=== PATIENT | female | born 1990 | race Caucasian/White ===

== ENCOUNTER 2023-12-22 13:55 | Emergency (ER) | payer BC, SELFPAY ==
[2023-12-22 13:59] VITALS: BP 132/79
[2023-12-22 15:05] VITALS: BP 122/80
[2023-12-22 15:38] LABS: Urine Albumin Negative (Neg - Trace); Urine Bilirubin Negative (Negative); Urine Character Clear (Clear); Urine Color Yellow; Urine Glucose Negative (Negative); Urine Ketone Negative (Negative); Urine Leukocyte Trace (Negative); Urine Nitrite Negative (Negative); Urine Occult Blood Negative (Negative); Urine Urobilinogen Negative (Neg - 1+)
[2023-12-22 15:39] LABS: % Basophils 0.3 % (0-2); % Eosinophils 0.4 % (0-6); % Immature Granulocytes 0.4 % (0-0.5); % Lymphocytes 15.6 % (20.5-51.1); % Monocytes 6.1 % (1.7-9.3); % Neutrophils 77.2 % (42.2-75.2); Absolute Lymphocytes 1.5 10^3/uL (1.2-3.4); Absolute Monocytes 0.6 10^3/uL (0.1-0.6); Absolute Neutrophils 7.6 10^3/uL (1.4-6.5); Hematocrit 38.4 % (37.0-47.0); Hemoglobin 13.6 g/dL (12.0-16.0); Mean Corp Hgb Conc. 35.4 g/dL (33.0-37.0); Mean Corpuscular Hgb 29.6 pg (27.0-31.0); Mean Corpuscular Volume 83.7 fL (81.0-99.0); Mean Platelet Volume 9.3 fL (7.4-10.4); Nucleated Red Blood Cells % 0 %; Platelet Count 166 10^3/uL (130-400); Red Blood Cell Count 4.59 10^6/uL (4.20-5.40); Red Cell Dist. Width 12.7 % (11.5-14.5); White Blood Cell Count 9.8 10^3/uL (4.8-10.8)
[2023-12-22 15:52] LABS: ALT (SGPT) 22 U/L (0-35); AST (SGOT) 28 U/L (14-36); Albumin 3.6 g/dl (3.5-5.0); Alkaline Phosphatase 152 U/L (38-126); Blood Urea Nitrogen 8 mg/dl (7-17); Calcium 8.8 mg/dl (8.4-10.2); Carbon Dioxide 24 mmol/L (22-30); Chloride 106 mmol/L (98-107); Glucose 77 mg/dl (70-99); Sodium 133 mmol/L (135-145); Total Bilirubin 1.3 mg/dl (0.2-1.3); Total Protein 6.6 g/dl (6.3-8.2); eGFR > 60.00
[2023-12-22 15:57] LABS: Urine Bacteria Few (Negative); Urine Red Blood Cell 0-2 /HPF (0-2); Urine Squamous Cell >30 /LPF (Few); Urine White Cell 0-2 /HPF (0-5)
--- NOTE | 2023-12-22 16:13 | ED.GENMED ---
History of Present Illness
<Héctor Jacobson DO - Last Filed: 12/22/23 16:17>
General
Chief Complaint: Chest Pain
Time Seen by Provider: 12/22/23 14:35
Travel History
Have you had any contact with someone who has COVID-19?: No
Do you have any symptoms of coronavirus? Fever > 100 degrees, chills, cough, shortness of breath, sore throat, loss of taste or smell, muscle aches, or headache?: No
<Cynthia Barnett PA-C - Last Filed: 12/23/23 17:43>
General
Source: patient
Exam Limitations: none
Nursing documentation reviewed up to this point in time: agreed with
History of Present Illness
History of Present Illness:
Patient is a 33-year-old female at 35 weeks gestation presenting for evaluation of left-sided chest pain with associated shortness of breath. Symptoms started earlier this week. Patient endorses left-sided chest pain with radiation to left
shoulder and shortness of breath that is worse when taking deep breaths and lying flat. Symptoms have been worsening over the past 2 days. She denies any fever, chills, lower leg pain, cough, or belly pain. She was recently treated for sinus
infection about a month ago.
She was seen at [facility] where her RECONDITIONER is. They performed a urinalysis to rule out preeclampsia and performed EKG. No findings at that time. She has also followed up in [facility]DITION[facility] office for repeat blood pressure measurements which have
been within normal range per patient.
This is her second �it has been uncomplicated thus far. No history of preeclampsia in the past
She has no personal history or family history of blood clots or any clotting disorders. She has had no recent travel or recent surgeries.
Past History
<Héctor Jacobson DO - Last Filed: 12/22/23 16:17>
Past History
ED Past Medical History: None
ED Past Surgical History: Other (Breast augmentation)
Social History
Tobacco: Non-smoker
Alcohol: None
Drug: None
Personal: Single
Living: with family
<Cynthia Barnett PA-C - Last Filed: 12/23/23 17:43>
Physical Exam
Physical Exam:
General: In mild distress due to discomfort and non-toxic, vital signs are�patient afebrile
HEENT: Atraumatic, normocephalic; pupils equal round reactive light bilaterally, protecting airway
Neck: appears supple, normal range of motion, no JVD
CV: Regular rate and rhythm, heart sounds normal, no evidence of cyanosis; no chest wall tenderness on palpation
Resp: No evidence of respiratory stress, lungs clear, no accessory muscle use
Abd: Soft, nontender, no CVA tenderness; fundus appropriate for gestational
Extremities: No deformities, no evidence of erythema, cyanosis or edema of bilateral lower extremities, pulses palpable and equal bilaterally; negative Homans' sign bilaterally
Neuro: alert and oriented x [address] time, speech normal, no focal neurologic deficits, no focal
Psych: Normal affect
Skin: Intact, no rashes
<Cynthia Barnett PA-C - Last Filed: 12/23/23 17:43>
Heart Score for Chest Pain Patients
STEMI patient?: Not applicable
Course
<Héctor Jacobson DO - Last Filed: 12/22/23 16:17>
Orders/Labs/Results
Orders:
Orders
12/22/23 13:56
ECG [Electrocardiogram (*1)] Urgent
Reason for Study: Chest Pain
EKG- Treatment ONCE
12/22/23 15:22
US Periph Venous LOWER Ext Teddy Urgent
Comment:
Reason For Exam: r/o dvt; chest pain, shortness of breath
12/22/23 15:28
Complete Blood Count/With Diff Urgent
Comprehensive Metabolic Panel Urgent
D-Dimer Urgent
Urinalysis Reflex To Culture Urgent
Date Specimen was Collected: 12/22/23
Time Specimen was Collected: 15:28
Urine Microscopic Reflex Cult Urgent
12/22/23 17:10
0.9% Sodium Chloride 1000 ml [Nss] 1,000 ml IV BOLUS
12/22/23 17:11
CT Chest Pe Study Urgent
Comment: 35 weeks
Reason For Exam: chest pain, shortness of breath, elevated d-dimer
Abnormal Lab Results
12/22/23
15:28
Absolute Neuts (auto) 7.6 H 10^3/uL
(1.4-6.5)
Neutrophils % 77.2 H %
(42.2-75.2)
Lymphocytes % 15.6 L %
(20.5-51.1)
D-Dimer 0.69 H ug/mlFEU
(0.00-0.50)
Sodium 133 L mmol/L
(135-145)
Creatinine 0.5 L mg/dL
(0.6-1.0)
Alkaline Phosphatase 152 H U/L
(38-126)
Leukocyte Esterase Rfl Trace A
(Negative)
Urine Bacteria (Reflex) Few A
(Negative)
12/22/23 15:28
12/22/23 15:28
Vital Signs
Initial and Last Documented VS:
Initial Vital Signs
Temp Pulse Resp BP Pulse Ox
98.3 F 89 18 132/79 100
12/22/23 13:59 12/22/23 13:59 12/22/23 13:59 12/22/23 13:59 12/22/23 13:59
Last Documented Vital Signs
Temp Pulse Resp BP Pulse Ox
98.3 F 73 15 140/75 100
12/22/23 13:59 12/22/23 18:30 12/22/23 18:30 12/22/23 18:17 12/22/23 18:30
<Cynthia Barnett PA-C - Last Filed: 12/23/23 17:43>
Orders/Labs/Results
Orders:
Orders
12/22/23 13:56
ECG [Electrocardiogram (*1)] Urgent
Reason for Study: Chest Pain
EKG- Treatment ONCE
12/22/23 15:22
US Periph Venous LOWER Ext Teddy Urgent
Comment:
Reason For Exam: r/o dvt; chest pain, shortness of breath
12/22/23 15:28
Complete Blood Count/With Diff Urgent
Comprehensive Metabolic Panel Urgent
D-Dimer Urgent
Urinalysis Reflex To Culture Urgent
Date Specimen was Collected: 12/22/23
Time Specimen was Collected: 15:28
Urine Microscopic Reflex Cult Urgent
12/22/23 17:10
0.9% Sodium Chloride 1000 ml [Nss] 1,000 ml IV BOLUS
12/22/23 17:11
CT Chest Pe Study Urgent
Comment: 35 weeks
Reason For Exam: chest pain, shortness of breath, elevated d-dimer
Abnormal Lab Results
12/22/23
15:28
Absolute Neuts (auto) 7.6 H 10^3/uL
(1.4-6.5)
Neutrophils % 77.2 H %
(42.2-75.2)
Lymphocytes % 15.6 L %
(20.5-51.1)
D-Dimer 0.69 H ug/mlFEU
(0.00-0.50)
Sodium 133 L mmol/L
(135-145)
Creatinine 0.5 L mg/dL
(0.6-1.0)
Alkaline Phosphatase 152 H U/L
(38-126)
Leukocyte Esterase Rfl Trace A
(Negative)
Urine Bacteria (Reflex) Few A
(Negative)
12/22/23 15:28
12/22/23 15:28
Vital Signs
Initial and Last Documented VS:
Initial Vital Signs
Temp Pulse Resp BP Pulse Ox
98.3 F 89 18 132/79 100
12/22/23 13:59 12/22/23 13:59 12/22/23 13:59 12/22/23 13:59 12/22/23 13:59
Last Documented Vital Signs
Temp Pulse Resp BP Pulse Ox
98.3 F 73 15 140/75 100
12/22/23 13:59 12/22/23 18:30 12/22/23 18:30 12/22/23 18:17 12/22/23 18:30
<Cynthia Barnett PA-C - Last Filed: 12/23/23 17:43>
MDM/Problems Addressed
Differential Diagnosis Includes:
Muscular strain, costochondritis, pleuritis, doubt PE, preeclampsia
MDM/Problems Addressed:
Patient is a 33-year-old female at 35 weeks gestation presenting for evaluation of left-sided chest pain associated shortness of breath worsening the past few days. Pain is sharp in nature and worse when taking deep breath and lying flat. No
associated fever, chills, cough, lower leg pain, belly pain. Recently seen in different emergency department earlier this week where urinalysis and EKG were unremarkable. She has had no recent travel or recent surgeries. Patient is
hemodynamically stable�afebrile. Heart rate is normal, oxygen saturation 100% on room air. Systolic blood pressure very mildly elevated. Physical exam as documented above. Lungs clear, heart sounds normal without any chest wall tenderness. No
evidence of DVT of lower extremity on exam. Given not tachycardic or hypoxic with no findings suggestive of DVT, doubt PE. Due to ongoing symptoms, will get basic labs. Will check D-dimer and chest for . Will get UA. Will get bilateral
ultrasound lower legs. Will reassess.
CBC without any clinically significant abnormalities. CMP without any clinically significant abnormalities. Urinalysis with no evidence of urinary tract infection, negative for protein. Ultrasound of lower legs negative for DVT in lower
extremities. D-dimer pending.
Update: D-dimer elevated to 0.69. Compared to adjusted reference range for . Given that patient is in third trimester, D-dimer remains elevated and out of range. Her vital signs remained stable in emergency department. Discussed options
with patient including risk for benefits of chest PE study. Given gestational age radiation risk to baby is very low. Patient would like to proceed with chest CT. Will start IV fluids. Chest CT pending.
CT of chest shows no evidence of pulmonary embolism or other abnormality in chest. Patient remains hemodynamically stable. No indication for admission at this time. She is stable for discharge with return precautions, RECONDITIONER/primary care
follow-up. Patient is comfortable this plan. All questions answered.
Chronic conditions affecting care:
<Cynthia Barnett PA-C - Last Filed: 12/23/23 17:43>
*Radiology
Radiology exam reviewed: radiology read reviewed
*Pulse Oximetry
Patient hypoxic: no
*EKG
Interpreted by ED Provider?: Yes
EKG Intrepretation Date: 12/22/23
Interpretation: normal
Comparison EKG: no comparison EKG present
Heart Rate: 75
Rate: normal
[place]: normal axis
Interval: normal interval
QRS Pattern: normal QRS
Ischemia: other (some T-wave inversion lead III, V3)
*Supervisor Fine Grading Interpretation
Rate: normal
Heart Rate: 80
Rhythm: sinus
*Critical Care Note
Total Time (30-74mins, 75-104mins- exclusive of procedures): Not Applicable
ED Attending Note
<Héctor Jacobson DO - Last Filed: 12/22/23 16:17>
ED Attending Note
Patient seen and examined by attending physician: Yes
I performed the substantive portion of visit, reviewed & personally made and approve the management plan that is documented in note by myself or GEORGE.: Yes
ED Attending Note:
Patient is a 33-year-old female who is 35 weeks and has an estimated date of confinement of January 21 who presents with left sharp chest pain for the past couple days. For about the last 3 to 4 days the patient's had chest tightness but is
now having sharp chest pains on the left that increased with movement or deep breathing. Patient denies fever or chills but was treated for sinus infection with antibiotics in the past. Patient denies abdominal pain. Patient denies leg pain or
swelling. Patient does feel short of breath and feels like she cannot take a deep breath. Patient denies coughing. There is no family history of clotting disorders. Patient was seen at another emergency department 2 days ago and had a urine and
EKG which were reportedly unremarkable. Physical exam patient has minimal to mild distress secondary to discomfort. Heart is regular lungs are clear. Chest is nontender. Abdomen shows fundus to be appropriate for dates. Lower extremities show
no edema or cyanosis. Distal pulses. Ultrasound is unremarkable. Will check a D-dimer and adjust for . I do not suspect the patient has a PE given Lack of tachycardia and 100% pulse ox. Patient's systolic blood pressure is mildly
elevated. Urine does not show any protein in the liver enzymes are not elevated. Anticipate treating the patient symptomatically and discharging. If the D-dimer is elevated beyond expected may have to do a CT of the chest. Given the patient is
35 weeks the risk of developmental impact for the fetus is minimal.
-
Portions of this chart may have been created with voice recognition software.� Occasional wrong word or��sound alike� substitutions may have occurred due to the inherent limitations of voice recognition software.
Discharge Plan
Departure
Patient Disposition: Home (Routine Discharge)
Date of Disposition: 12/22/23
Time of Disposition: 18:39
Patient with high blood pressure during this ER visit?: Yes
Condition: Good
Covid-19: Not Applicable
Discharge Problem:
Chest pain, unspecified, Dyspnea
Instructions: Chest Pain, Adult ED, BLOOD PRESSURE
Prescriptions:
No Action
diclofenac sodium 75 MG tablet,delayed release (DR/EC)
75 mg PO BID Qty: 10 0RF
Referrals:
Samuel Kramer MD [Family Provider] -
Activity Restrictions/Additional Instructions:
- Return to the emergency room with any severe chest pain, worsening shortness of breath, coughing up blood, high fevers, severe abdominal pain, intractable vomiting, worsening in current symptoms, or any other concerns
-As discussed today, your CT scan showed no evidence of a blood clot in your lung
-Can take tylenol as needed for discomfort. Stay well hydrated.
-Follow-up with your RECONDITIONER and primary care as needed
Interventions
Interventions:
*Risk Screen - Suicide Last Done: 12/22/23 13:59
*General Assessment Last Done: 12/22/23 13:59
*Neglect/Abuse Screening Last Done: 12/22/23 13:59
ED- Fall Risk Assessment Last Done: 12/22/23 14:22
*ED COVID-19 Vaccine History Last Done: 12/22/23 14:22
*Nursing Disposition Last Done: 12/22/23 18:54
ED- Cardiac Assessment Last Done: 12/22/23 14:22
Discharge Date and Time
Discharge Date/Time: 12/22/23 18:54
[2023-12-22 16:21] LABS: D-Dimer 0.69 ug/mlFEU (0.00-0.50)
[2023-12-22 17:13] VITALS: BP 121/99
[2023-12-22] MEDS: NSS 1000 IV (17:22)
[2023-12-22 18:17] VITALS: BP 140/75
== END 2023-12-22 18:54 | disposition home or self-care (01) ==
LOC: EMR 13:55
PROVIDERS: Physician Assistant; EMERGENCY PHYSICIAN Emergency Medicine; FAMILY PHYSICIAN Family Medicine
DX: O26.893 Other specified pregnancy related conditions, third trimester (principal); O99.891 Other specified diseases and conditions complicating pregnancy; Z3A.35 35 weeks gestation of pregnancy; R07.89 Other chest pain; R06.00 Dyspnea, unspecified; R03.0 Elevated blood-pressure reading, without diagnosis of hypertension
CPT/HCPCS: 99285; 96360; 71275; 80053; 81003; 81015; 85025; 85379; 93005; 93970; Q9967